=== PATIENT | male | born 1990 | race Caucasian/White ===

== ENCOUNTER 2017-09-02 18:33 | Emergency (ER) | payer MEDICAID ==
[~2017-09-02] VITALS: Ht 165.1 cm; Wt 68.9 kg
[2017-09-02 18:39] VITALS: Ht 165.1 cm; Wt 68.9 kg
[2017-09-02 20:27] VITALS: BP 119/63
== END 2017-09-02 20:28 | disposition home or self-care (01) ==
LOC: ED 18:33
DX: S82.51XA Displaced fracture of medial malleolus of right tibia, initial encounter for closed fracture (principal); M54.9 Dorsalgia, unspecified; W18.39XA Other fall on same level, initial encounter; Y93.89 Activity, other specified; Y92.89 Other specified places as the place of occurrence of the external cause; Y99.8 Other external cause status
CPT/HCPCS: Q0092